=== PATIENT | female | born 1975 | race Caucasian/White ===

== ENCOUNTER 2017-08-30 12:37 | Emergency (ER) | payer OTHER ==
[~2017-08-30] VITALS: Ht 162.6 cm; Wt 65.0 kg
[~2017-08-30 12:37] MED LIST: GLIP5TAB12 PO; METF500T6 PO
[2017-08-30] MEDS ORDERED: SODIUM CHLORIDE 0.9% 1,000 ML IV ONE ×2 (13:34→13:45)
[2017-08-30] MEDS ORDERED: IBUPROFEN 600MG TABLET PO ONE (13:45)
[2017-08-30 15:16] LABS: BASOPHILS % 0.5 % (0.0-2.0); EOSINOPHILS % 1.5 % (0.0-5.0); LYMPHOCYTES % 18.3 % (20.0-50.0); MEAN CORPUSCULAR HEMOGLOBIN 26.9 pg (28.0-32.0); MEAN CORPUSCULAR VOLUME 81.1 fL (81.0-99.0); MEAN PLATELET VOLUME 7.9 fl (7.4-10.4); NEUTROPHILS % 74.7 % (40.0-76.0); PLATELET 231 x1000/uL (130-400); RED BLOOD CELL COUNT 4.45 mill/uL (4.2-5.4); RED CELL DISTRIBUTION WIDTH 14.1 % (11.6-14.6)
[2017-08-30 15:20] LABS: CHLORIDE 103 mEq/L (98-107)
[2017-08-30 15:54] LABS: CLARITY URINE CLOUDY (CLEAR); COLOR URINE YELLOW (YELLOW); KETONES URINE TRACE (NEGATIVE); LEUKOCYTE ESTERASE URINE NEGATIVE (NEGATIVE); NITRITE URINE POSITIVE (NEGATIVE); OCCULT BLOOD URINE NEGATIVE (NEGATIVE); PH URINE 5.5 (4.5-8.0); PROTEIN URINE NEGATIVE (NEGATIVE); SPECIFIC GRAVITY URINE 1.033 (1.005-1.030); UROBILINOGEN URINE 0.2 E.U./dL (0.2-1.0)
[2017-08-30 16:45] VITALS: BP 99/66
== END 2017-08-30 16:47 | disposition home or self-care (01) ==
LOC: ER 12:37
DX: E11.65 Type 2 diabetes mellitus with hyperglycemia (principal); R55 Syncope and collapse; N30.00 Acute cystitis without hematuria; F41.9 Anxiety disorder, unspecified; Z79.84 Long term (current) use of oral hypoglycemic drugs
CPT/HCPCS: 36415; 80053; 81003; 81025; 85025; 93005; 96360; 96361; 99285; J7030; Z7610

== ENCOUNTER 2018-04-12 14:57 | Emergency (ER) | payer SELFPAY ==
[~2018-04-12] VITALS: Ht 165.1 cm; Wt 65.0 kg
[~2018-04-12 14:57] MED LIST changes: +METF-414 PO; -METF500T6 PO
[2018-04-12 17:01] LABS: BASOPHILS % 0.4 % (0.0-2.0); EOSINOPHILS % 1.3 % (0.0-5.0); HEMATOCRIT. 38.6 % (36.0-48.0); HEMOGLOBIN. 12.5 g/dL (12.0-16.0); LYMPHOCYTES % 14.5 % (20.0-50.0); MEAN CORPUSCULAR HEMOGLOBIN 25.8 pg (28.0-32.0); MEAN CORPUSCULAR VOLUME 79.6 fL (81.0-99.0); MEAN PLATELET VOLUME 8.1 fl (7.4-10.4); MONOCYTES % 5.4 % (2.0-8.0); NEUTROPHILS % 78.4 % (40.0-76.0); PLATELET 257 x1000/uL (130-400); RED BLOOD CELL COUNT 4.86 mill/uL (4.2-5.4); RED CELL DISTRIBUTION WIDTH 14.8 % (11.6-14.6)
[2018-04-12 17:02] LABS: CHLORIDE 105 mEq/L (98-107)
[2018-04-12 17:11] LABS: HCG SCREEN NEGATIVE
[2018-04-12] MEDS ORDERED: LORAZEPAM 1MG TABLET PO ONE (18:15)
[2018-04-12 19:30] VITALS: BP 114/74
== END 2018-04-12 21:32 | disposition home or self-care (01) ==
LOC: ER 14:57
DX: R07.89 Other chest pain (principal); F41.9 Anxiety disorder, unspecified; R00.0 Tachycardia, unspecified; K21.9 Gastro-esophageal reflux disease without esophagitis; E11.9 Type 2 diabetes mellitus without complications; Z79.84 Long term (current) use of oral hypoglycemic drugs
CPT/HCPCS: 36415; 71045; 80048; 83880; 84484; 84703; 93005; 99284

== ENCOUNTER 2018-12-13 11:39 | Emergency (ER) | payer MEDICAID ==
[~2018-12-13] VITALS: Ht 157.5 cm; Wt 59.0 kg
[2018-12-13] MEDS ORDERED: SODIUM CHLORIDE 0.9% 1,000 ML IV ONE (12:27)
[2018-12-13 13:09] LABS: BASOPHILS % 0.6 % (0.0-2.0); EOSINOPHILS % 1.8 % (0.0-5.0); HEMATOCRIT. 36.3 % (36.0-48.0); HEMOGLOBIN. 11.8 g/dL (12.0-16.0); LYMPHOCYTES % 18.5 % (20.0-50.0); MEAN CORPUSCULAR HEMOGLOBIN 25.8 pg (28.0-32.0); MEAN CORPUSCULAR VOLUME 79.1 fL (81.0-99.0); MEAN PLATELET VOLUME 8.3 fl (7.4-10.4); MONOCYTES % 5.4 % (2.0-8.0); NEUTROPHILS % 73.7 % (40.0-76.0); PLATELET 200 x1000/uL (130-400); RED BLOOD CELL COUNT 4.59 mill/uL (4.2-5.4)
[2018-12-13 13:16] LABS: CHLORIDE 104 mEq/L (98-107)
[2018-12-13 13:35] LABS: CLARITY URINE CLOUDY (CLEAR); COLOR URINE YELLOW (YELLOW); KETONES URINE NEGATIVE (NEGATIVE); LEUKOCYTE ESTERASE URINE NEGATIVE (NEGATIVE); NITRITE URINE NEGATIVE (NEGATIVE); OCCULT BLOOD URINE NEGATIVE (NEGATIVE); PH URINE 5.5 (4.5-8.0); PROTEIN URINE NEGATIVE (NEGATIVE); SPECIFIC GRAVITY URINE 1.009 (1.005-1.030); UROBILINOGEN URINE 0.2 E.U./dL (0.2-1.0)
[2018-12-13 13:36] LABS: HCG SCREEN NEGATIVE
[2018-12-13 16:00] VITALS: BP 99/59
== END 2018-12-13 16:15 | disposition home or self-care (01) ==
LOC: ER 11:39
DX: E11.65 Type 2 diabetes mellitus with hyperglycemia (principal); F41.9 Anxiety disorder, unspecified; K21.9 Gastro-esophageal reflux disease without esophagitis; Z76.0 Encounter for issue of repeat prescription; Z79.84 Long term (current) use of oral hypoglycemic drugs
CPT/HCPCS: 36415; 71045; 80053; 81003; 81025; 82962; 84703; 85025; 93005; 96360; 99284; J7030; Z7610

== ENCOUNTER 2019-05-14 18:19 | Emergency (ER) | payer SELFPAY ==
[~2019-05-14] VITALS: Ht 165.1 cm; Wt 60.0 kg
[2019-05-14 22:42] LABS: CLARITY URINE CLEAR (CLEAR); COLOR URINE YELLOW (YELLOW); KETONES URINE NEGATIVE (NEGATIVE); LEUKOCYTE ESTERASE URINE TRACE (NEGATIVE); NITRITE URINE NEGATIVE (NEGATIVE); OCCULT BLOOD URINE TRACE (NEGATIVE); PH URINE 5.5 (4.5-8.0); PROTEIN URINE NEGATIVE (NEGATIVE); SPECIFIC GRAVITY URINE 1.016 (1.005-1.030); UROBILINOGEN URINE 0.2 E.U./dL (0.2-1.0)
[2019-05-14 23:31] LABS: BASOPHILS % 0.7 % (0.0-2.0); EOSINOPHILS % 2.4 % (0.0-5.0); HEMATOCRIT. 39.7 % (36.0-48.0); HEMOGLOBIN. 13.1 g/dL (12.0-16.0); LYMPHOCYTES % 27.6 % (20.0-50.0); MEAN CORPUSCULAR HEMOGLOBIN 26.7 pg (28.0-32.0); MEAN CORPUSCULAR VOLUME 80.8 fL (81.0-99.0); MONOCYTES % 6.3 % (2.0-8.0); PLATELET 226 x1000/uL (130-400); RED BLOOD CELL COUNT 4.92 mill/uL (4.2-5.4); RED CELL DISTRIBUTION WIDTH 14.5 % (11.6-14.6)
[2019-05-14 23:38] LABS: CHLORIDE 102 mEq/L (98-107)
[2019-05-15] MEDS ORDERED: SODIUM CHLORIDE 0.9% 1,000 ML IV ONE
[2019-05-15] MEDS ORDERED: ACETAMINOPHEN 325MG TABLET PO ONE (01:00)
[2019-05-15 02:08] VITALS: BP 116/70
== END 2019-05-15 02:09 | disposition home or self-care (01) ==
LOC: ER 18:19
DX: S09.90XA Unspecified injury of head, initial encounter (principal); R55 Syncope and collapse; E11.65 Type 2 diabetes mellitus with hyperglycemia; K21.9 Gastro-esophageal reflux disease without esophagitis; W18.39XA Other fall on same level, initial encounter; Y93.01 Activity, walking, marching and hiking; Y92.89 Other specified places as the place of occurrence of the external cause; Y99.8 Other external cause status
CPT/HCPCS: 36415; 70450; 80053; 81003; 81025; 83690; 85025; 93005; 96360; 99285; J7030

== ENCOUNTER 2021-03-08 15:32 | Emergency (ER) | payer MEDICARE ==
[~2021-03-08] VITALS: Ht 157.5 cm; Wt 65.0 kg
[2021-03-08] MEDS ORDERED: KETOROLAC 60MG/2ML VIAL IM ONE (17:45)
[2021-03-08 18:09] VITALS: BP 124/77
== END 2021-03-08 18:19 | disposition home or self-care (01) ==
LOC: ER 15:32
DX: S46.811A Strain of other muscles, fascia and tendons at shoulder and upper arm level, right arm, initial encounter (principal); M25.511 Pain in right shoulder; X58.XXXA Exposure to other specified factors, initial encounter; Y93.89 Activity, other specified; Y92.89 Other specified places as the place of occurrence of the external cause; Y99.8 Other external cause status; F41.9 Anxiety disorder, unspecified; E11.9 Type 2 diabetes mellitus without complications; K21.9 Gastro-esophageal reflux disease without esophagitis
CPT/HCPCS: 73030; 82962; 96372; 99283; J1885

== ENCOUNTER 2022-03-06 14:11 | Emergency (ER) | payer MEDICAID, MEDICARE ==
[~2022-03-06] VITALS: Ht 157.5 cm; Wt 54.0 kg
[2022-03-06] MEDS ORDERED: ONDANSETRON HCL 4MG/2ML INJ IV STA (15:39)
[2022-03-06] MEDS ORDERED: ACETAMINOPHEN 325MG TABLET PO STA (15:39)
[2022-03-06] MEDS ORDERED: MECLIZINE 25MG TABLET PO ONE (15:45)
[2022-03-06] MEDS ORDERED: SODIUM CHLORIDE 0.9% 1,000 ML IV ONE (15:45)
[2022-03-06 16:00] VITALS: BP 114/70
[2022-03-06 16:24] LABS: CHLORIDE 101 mEq/L (98-107)
[2022-03-06 16:26] LABS: BASOPHILS % 0.5 % (0.0-2.0); EOSINOPHILS % 1.8 % (0.0-5.0); HEMATOCRIT. 40.6 % (36.0-48.0); HEMOGLOBIN. 13.6 g/dL (12.0-16.0); LYMPHOCYTES % 17.6 % (20.0-50.0); MEAN CORPUSCULAR VOLUME 83.6 fL (81.0-99.0); MEAN PLATELET VOLUME 8.3 fl (7.4-10.4); MONOCYTES % 7.5 % (2.0-8.0); NEUTROPHILS % 72.6 % (40.0-76.0); PLATELET 203 x1000/uL (130-400); RED BLOOD CELL COUNT 4.85 mill/uL (4.2-5.4); RED CELL DISTRIBUTION WIDTH 13.3 % (11.6-14.6)
[2022-03-06 16:35] LABS: BETA HYDROXYBUTYRATE 0.8 mMol/L (0.0-0.3)
[2022-03-06] MEDS ORDERED: INSULIN REGULAR (HUMULIN R) 300UNITS/3ML VIAL IV ONE (18:15)
[2022-03-06 18:35] LABS: CLARITY URINE CLEAR (CLEAR); COLOR URINE YELLOW (YELLOW); KETONES URINE 2+ (NEGATIVE); LEUKOCYTE ESTERASE URINE NEGATIVE (NEGATIVE); NITRITE URINE NEGATIVE (NEGATIVE); OCCULT BLOOD URINE NEGATIVE (NEGATIVE); PROTEIN URINE NEGATIVE (NEGATIVE); SPECIFIC GRAVITY URINE 1.045 (1.005-1.030); UROBILINOGEN URINE 0.2 E.U./dL (0.2-1.0)
[2022-03-06] MEDS ORDERED: MECL-159 MT (18:58)
== END 2022-03-06 19:38 | disposition home or self-care (01) ==
LOC: ER 14:11
DX: R42 Dizziness and giddiness (principal); E11.65 Type 2 diabetes mellitus with hyperglycemia; F41.9 Anxiety disorder, unspecified; K21.9 Gastro-esophageal reflux disease without esophagitis; Z87.11 Personal history of peptic ulcer disease
CPT/HCPCS: 36415; 70450; 71045; 80053; 81003; 82010; 82962; 84484; 85025; 86850; 86900; 86901; 93005; 96361; 96374; 96375; 99285; J1815; J2405; J7030; J8597

== ENCOUNTER 2023-08-09 20:05 | Emergency (ER) | payer MEDICARE ==
[~2023-08-09] VITALS: Ht 160 cm; Wt 60.0 kg
[~2023-08-09 20:05] MED LIST changes: -GLIP5TAB12 PO; +GLIP5TAB22 PO; +MECL-299 MT
[2023-08-09 20:11] VITALS: O2SAT 98
[2023-08-09 21:24] VITALS: TEMP 98.5
[2023-08-09] MEDS: SODIUM CHLORIDE 0.9% 1,000 ML IV ONE (21:45)
[2023-08-09 21:47] LABS: BASOPHILS % 0.7 % (0.0-2.0); EOSINOPHILS % 1.8 % (0.0-5.0); HEMATOCRIT. 36.3 % (36.0-48.0); HEMOGLOBIN. 12.1 g/dL (12.0-16.0); LYMPHOCYTES % 22.3 % (20.0-50.0); MEAN CORPUSCULAR HEMOGLOBIN 28.2 pg (28.0-32.0); MEAN CORPUSCULAR HGB CONC 33.3 g/dL (31.0-37.0); MEAN CORPUSCULAR VOLUME 84.5 fL (81.0-99.0); MEAN PLATELET VOLUME 7.8 fl (7.4-10.4); MONOCYTES % 7.1 % (2.0-8.0); NEUTROPHILS % 68.1 % (40.0-76.0); PLATELET 230 x1000/uL (130-400)
[2023-08-09 21:53] LABS: CHLORIDE 107 mEq/L (98-107); POTASSIUM 3.4 mEq/L (3.5-5.1); SODIUM 139 mEq/L (136-145)
[2023-08-09 21:54] LABS: CARBON DIOXIDE 28 mEq/L (21-32)
[2023-08-09 21:56] LABS: PROTHROMBIN TIME 10.7 sec (9.6-11.0)
[2023-08-09 21:59] LABS: CREATININE 0.5 mg/dL (0.6-1.0); GLUCOSE 169 mg/dL (70-105); UREA NITROGEN BLOOD 10 mg/dL (9-23)
[2023-08-09 22:00] LABS: TROPONIN I HIGH SENSITIVITY < 4 ng/L (3.0-34)
[2023-08-09] MEDS ORDERED: MECLIZINE 25MG TABLET PO ONE (22:00)
[2023-08-09] MEDS: METOCLOPRAMIDE HCL 10MG/2ML VIAL IV ONE (22:31)
[2023-08-09] MEDS: DIPHENHYDRAMINE 50MG/ML VIAL IV ONE (22:31)
[2023-08-09] MEDS: KETOROLAC 30MG/ML VIAL IV ONE (22:31)
[2023-08-10 01:08] VITALS: BP 138/76; PULSE 98; RESP 18
== END 2023-08-10 01:12 | disposition home or self-care (01) ==
LOC: ER 20:05
DX: G43.809 Other migraine, not intractable, without status migrainosus (principal); F41.9 Anxiety disorder, unspecified; E11.9 Type 2 diabetes mellitus without complications; K21.9 Gastro-esophageal reflux disease without esophagitis
CPT/HCPCS: 80048; 82962; 83880; 85025; 85610; 84484; 36415; 71045; 70450; 96361; 96374; 96375; 99285; J1200; J1885; J2765; J7030; J8597

== ENCOUNTER 2024-06-23 12:31 | Emergency (ER) | payer MEDICARE ==
[~2024-06-23] VITALS: Ht 157.5 cm; Wt 57.0 kg
[2024-06-23 12:37] VITALS: O2SAT 99
[2024-06-23 14:04] LABS: BASOPHILS % 0.6 % (0.0-2.0); EOSINOPHILS % 1.2 % (0.0-5.0); HEMATOCRIT. 43.2 % (36.0-48.0); LYMPHOCYTES % 15.9 % (20.0-50.0); MEAN CORPUSCULAR HEMOGLOBIN 27.4 pg (28.0-32.0); MEAN CORPUSCULAR HGB CONC 32.4 g/dL (31.0-37.0); MEAN CORPUSCULAR VOLUME 84.6 fL (81.0-99.0); MEAN PLATELET VOLUME 7.8 fl (7.4-10.4); MONOCYTES % 5.5 % (2.0-8.0); NEUTROPHILS % 76.8 % (40.0-76.0); PLATELET 262 x1000/uL (130-400); RED BLOOD CELL COUNT 5.11 mill/uL (4.2-5.4); WHITE BLOOD COUNT 8.6 x1000/uL (4.5-11.0)
[2024-06-23 14:12] LABS: PROTHROMBIN TIME 10.6 sec (9.6-11.0)
[2024-06-23 14:17] LABS: CARBON DIOXIDE 27 mEq/L (21-32); CHLORIDE 98 mEq/L (98-107); POTASSIUM 3.6 mEq/L (3.5-5.1); SODIUM 139 mEq/L (136-145)
[2024-06-23 14:18] LABS: CALCIUM 10.1 mg/dL (8.7-10.4)
[2024-06-23 14:21] LABS: CLARITY URINE TURBID (CLEAR); COLOR URINE YELLOW (YELLOW); GLUCOSE URINE 3+ (NEGATIVE); KETONES URINE 3+ (NEGATIVE); LEUKOCYTE ESTERASE URINE NEGATIVE (NEGATIVE); NITRITE URINE NEGATIVE (NEGATIVE); OCCULT BLOOD URINE NEGATIVE (NEGATIVE); PROTEIN URINE 1+ (NEGATIVE); SPECIFIC GRAVITY URINE 1.038 (1.005-1.030); UROBILINOGEN URINE 0.2 E.U./dL (0.2-1.0)
[2024-06-23 14:22] LABS: CREATININE 0.7 mg/dL (0.6-1.0)
[2024-06-23 14:23] LABS: GLUCOSE 299 mg/dL (70-105); TROPONIN I HIGH SENSITIVITY 4 ng/L (3.0-34); UREA NITROGEN BLOOD 17 mg/dL (9-23)
[2024-06-23 14:33] LABS: BACTERIA URINE 2+; RBC URINE 0-2 /hpf (0-2); SQUAMOUS EPITHELIAL CELL URINE 3+ /lpf (RARE/1+); YEAST URINE FEW
[2024-06-23] MEDS ORDERED: NITR-87 MT (14:41)
[2024-06-23 15:25] VITALS: BP 129/79; PULSE 100; RESP 14; TEMP 36.5; O2SAT 100
== END 2024-06-23 15:39 | disposition home or self-care (01) ==
LOC: ER 12:31
DX: N39.0 Urinary tract infection, site not specified (principal); F41.1 Generalized anxiety disorder; E11.9 Type 2 diabetes mellitus without complications; F43.0 Acute stress reaction; Z87.440 Personal history of urinary (tract) infections
CPT/HCPCS: 36415; 71045; 80048; 81003; 84484; 85025; 93005; 99285

== ENCOUNTER 2024-07-25 15:09 | Emergency (ER) | payer MEDICARE ==
[~2024-07-25] VITALS: Ht 157.5 cm; Wt 61.0 kg
[~2024-07-25 15:09] MED LIST changes: +NITR-87 MT
[2024-07-25 15:10] VITALS: O2SAT 100
[2024-07-25] MEDS: DIPHENHYDRAMINE 50MG/ML VIAL IV ONE (15:49)
[2024-07-25] MEDS: METOCLOPRAMIDE HCL 10MG/2ML VIAL IV ONE (15:50)
[2024-07-25] MEDS: SODIUM CHLORIDE 0.9% 1,000 ML IV ONE (15:50)
[2024-07-25 16:02] LABS: BASOPHILS % 0.3 % (0.0-2.0); EOSINOPHILS % 1.8 % (0.0-5.0); HEMATOCRIT. 39.1 % (36.0-48.0); HEMOGLOBIN. 13.2 g/dL (12.0-16.0); LYMPHOCYTES % 19.9 % (20.0-50.0); MEAN CORPUSCULAR HEMOGLOBIN 27.6 pg (28.0-32.0); MEAN CORPUSCULAR HGB CONC 33.6 g/dL (31.0-37.0); MEAN PLATELET VOLUME 7.9 fl (7.4-10.4); MONOCYTES % 4.4 % (2.0-8.0); NEUTROPHILS % 73.6 % (40.0-76.0); PLATELET 235 x1000/uL (130-400); RED BLOOD CELL COUNT 4.77 mill/uL (4.2-5.4); RED CELL DISTRIBUTION WIDTH 13.6 % (11.6-14.6); WHITE BLOOD COUNT 6.1 x1000/uL (4.5-11.0)
[2024-07-25 16:07] LABS: CHLORIDE 103 mEq/L (98-107); POTASSIUM 3.8 mEq/L (3.5-5.1); SODIUM 140 mEq/L (136-145)
[2024-07-25 16:08] LABS: CALCIUM 9.4 mg/dL (8.7-10.4); CARBON DIOXIDE 29 mEq/L (21-32)
[2024-07-25 16:13] LABS: CREATININE 0.6 mg/dL (0.6-1.0); GLUCOSE 215 mg/dL (70-105); UREA NITROGEN BLOOD 17 mg/dL (9-23)
[2024-07-25 16:14] LABS: ETHANOL BLOOD < 10 mg/dL (<10)
[2024-07-25 16:15] LABS: ALANINE AMINOTRANSFERASE 10 IU/L (10-49); ALBUMIN 4.4 g/dL (3.2-4.8); ASPARTATE AMINOTRANSFERASE 12 IU/L (<34); BILIRUBIN DIRECT < 0.1 mg/dL (<=3.0); BILIRUBIN TOTAL 0.4 mg/dL (0.1-1.0); PROTEIN TOTAL 7.6 g/dL (6.0-8.3)
[2024-07-25 16:17] LABS: TROPONIN I HIGH SENSITIVITY < 4 ng/L (3.0-34)
[2024-07-25] MEDS: ACETAMINOPHEN 1000MG/100ML 100 ML IV ONE (16:17)
[2024-07-25 16:29] LABS: HCG SCREEN NEGATIVE
[2024-07-25 17:39] VITALS: BP 125/77; PULSE 96; RESP 12; TEMP 36.6; O2SAT 100
== END 2024-07-25 15:32 | disposition home or self-care (01) ==
LOC: ER 15:09
DX: G43.909 Migraine, unspecified, not intractable, without status migrainosus (principal); E11.9 Type 2 diabetes mellitus without complications; I10 Essential (primary) hypertension; K21.9 Gastro-esophageal reflux disease without esophagitis; F41.9 Anxiety disorder, unspecified
CPT/HCPCS: 80076; 80048; 80320; 84703; 85025; 84484; 36415; 70450; 96365; 96375; 99285; J2765; J7030; G0480; J0131

== ENCOUNTER 2024-10-17 20:37 | Emergency (ER) | payer MEDICARE ==
[~2024-10-17] VITALS: Ht 157.5 cm; Wt 57.7 kg
[2024-10-17 20:41] VITALS: RESP 14; O2SAT 98
[2024-10-17] MEDS: ONDANSETRON 4MG ODT PO ONE (21:15)
[2024-10-17] MEDS: FAMOTIDINE 20MG TABLET PO ONE (21:15)
[2024-10-17] MEDS: MAGNESIUM/ALUMINUM HYDROXIDE/SIMETHICONE 30ML UDC PO ONE (21:15)
[2024-10-17 21:21] LABS: BASOPHILS % 0.3 % (0.0-2.0); EOSINOPHILS % 2.0 % (0.0-5.0); HEMATOCRIT. 37.9 % (36.0-48.0); HEMOGLOBIN. 12.4 g/dL (12.0-16.0); LYMPHOCYTES % 20.6 % (20.0-50.0); MEAN PLATELET VOLUME 7.6 fl (7.4-10.4); MONOCYTES % 5.1 % (2.0-8.0); NEUTROPHILS % 72.0 % (40.0-76.0); PLATELET 227 x1000/uL (130-400); RED BLOOD CELL COUNT 4.55 mill/uL (4.2-5.4); RED CELL DISTRIBUTION WIDTH 13.6 % (11.6-14.6)
[2024-10-17 21:31] LABS: CLARITY URINE CLOUDY (CLEAR); COLOR URINE YELLOW (YELLOW); GLUCOSE URINE 3+ (NEGATIVE); KETONES URINE 1+ (NEGATIVE); LEUKOCYTE ESTERASE URINE NEGATIVE (NEGATIVE); NITRITE URINE NEGATIVE (NEGATIVE); OCCULT BLOOD URINE NEGATIVE (NEGATIVE); PH URINE 5.5 (4.5-8.0); PROTEIN URINE NEGATIVE (NEGATIVE); SPECIFIC GRAVITY URINE 1.037 (1.005-1.030); UROBILINOGEN URINE 0.2 E.U./dL (0.2-1.0)
[2024-10-17 21:32] LABS: CREATININE 0.8 mg/dL (0.6-1.0); UREA NITROGEN BLOOD 13 mg/dL (9-23)
[2024-10-17 21:34] LABS: ASPARTATE AMINOTRANSFERASE 10 IU/L (<34); BILIRUBIN DIRECT < 0.1 mg/dL (<=3.0); BILIRUBIN TOTAL 0.3 mg/dL (0.1-1.0); PROTEIN TOTAL 7.2 g/dL (6.0-8.3)
[2024-10-17 21:46] LABS: BACTERIA URINE 2+; RBC URINE 0-2 /hpf (0-2); SQUAMOUS EPITHELIAL CELL URINE 2+ /lpf (RARE/1+); WBC URINE 0-2 /hpf (0-2)
[2024-10-17] MEDS: VISCOUS LIDOCAINE 2% 15 ML UDC MM ONE (21:47)
[2024-10-17] MEDS ORDERED: ONDA-239 PO (23:10)
[2024-10-17 23:29] VITALS: BP 147/86; PULSE 103; TEMP 36.5; O2SAT 99
== END 2024-10-17 23:31 | disposition home or self-care (01) ==
LOC: ER 20:37
DX: K29.70 Gastritis, unspecified, without bleeding (principal); E11.9 Type 2 diabetes mellitus without complications; F41.9 Anxiety disorder, unspecified; K21.9 Gastro-esophageal reflux disease without esophagitis
CPT/HCPCS: 99284; 80076; 80048; 81003; 83690; 85025; 36415; 93005; Q0162

== ENCOUNTER 2025-01-22 21:47 | Emergency (ER) | payer MEDICARE ==
[~2025-01-22] VITALS: Ht 162.6 cm; Wt 69.0 kg
[~2025-01-22 21:47] MED LIST changes: +ONDA-239 PO
[2025-01-22 21:50] VITALS: O2SAT 100
[2025-01-22] MEDS ORDERED: ALPRAZOLAM 0.5 MG TABLET PO ONE (22:15)
[2025-01-22] MEDS ORDERED: MAGNESIUM/ALUMINUM HYDROXIDE/SIMETHICONE 30ML UDC PO ONE (22:15)
[2025-01-23] MEDS: ALPRAZOLAM 0.25 MG TABLET PO NR (00:10)
[2025-01-23 00:11] LABS: BASOPHILS % 0.4 % (0.0-2.0); EOSINOPHILS % 1.7 % (0.0-5.0); HEMATOCRIT. 37.5 % (36.0-48.0); HEMOGLOBIN. 12.7 g/dL (12.0-16.0); LYMPHOCYTES % 16.2 % (20.0-50.0); MEAN PLATELET VOLUME 8.0 fl (7.4-10.4); MONOCYTES % 5.5 % (2.0-8.0); NEUTROPHILS % 76.2 % (40.0-76.0); PLATELET 240 x1000/uL (130-400); RED BLOOD CELL COUNT 4.59 mill/uL (4.2-5.4); RED CELL DISTRIBUTION WIDTH 13.2 % (11.6-14.6)
[2025-01-23] MEDS: MAGNESIUM/ALUMINUM HYDROXIDE/SIMETHICONE 30ML UDC PO NR (00:15)
[2025-01-23] MEDS: VISCOUS LIDOCAINE 2% 15 ML UDC MM PRN (00:15)
[2025-01-23 00:16] LABS: CREATININE 0.8 mg/dL (0.6-1.0); UREA NITROGEN BLOOD 11 mg/dL (9-23)
[2025-01-23 00:18] LABS: ASPARTATE AMINOTRANSFERASE 12 IU/L (<34); BILIRUBIN DIRECT < 0.1 mg/dL (<=3.0); BILIRUBIN TOTAL 0.3 mg/dL (0.1-1.0); PROTEIN TOTAL 7.6 g/dL (6.0-8.3)
[2025-01-23] MEDS ORDERED: MAG-55 MT (00:46)
[2025-01-23] MEDS ORDERED: ACET-2708 MT (00:46)
[2025-01-23 01:32] VITALS: BP 121/73; PULSE 98; RESP 16; TEMP 36.9; O2SAT 100
== END 2025-01-23 01:30 | disposition home or self-care (01) ==
LOC: ER 21:47 → CMPBEDREQ 01-23 09:02
DX: K29.70 Gastritis, unspecified, without bleeding (principal); F41.9 Anxiety disorder, unspecified; E11.9 Type 2 diabetes mellitus without complications; I10 Essential (primary) hypertension; Z87.19 Personal history of other diseases of the digestive system
CPT/HCPCS: 36415; 71045; 76705; 80048; 80076; 80320; 85025; 93005; 99285; G0480

== ENCOUNTER 2025-02-09 13:21 | Emergency (ER) | payer MEDICARE ==
[~2025-02-09] VITALS: Ht 157.5 cm; Wt 57.0 kg
[~2025-02-09 13:21] MED LIST changes: +ACET-2708 MT; +MAG-55 MT
[2025-02-09 13:40] VITALS: O2SAT 99
[2025-02-09] MEDS: LORAZEPAM 0.5MG TABLET PO ONE (14:46)
[2025-02-09] MEDS: SODIUM CHLORIDE 0.9% 1,000 ML IV ONE (14:46)
[2025-02-09 15:07] LABS: BASOPHILS % 0.5 % (0.0-2.0); EOSINOPHILS % 1.7 % (0.0-5.0); HEMATOCRIT. 38.6 % (36.0-48.0); HEMOGLOBIN. 12.8 g/dL (12.0-16.0); LYMPHOCYTES % 15.9 % (20.0-50.0); MEAN PLATELET VOLUME 7.6 fl (7.4-10.4); MONOCYTES % 4.7 % (2.0-8.0); NEUTROPHILS % 77.2 % (40.0-76.0); PLATELET 224 x1000/uL (130-400); RED BLOOD CELL COUNT 4.64 mill/uL (4.2-5.4); RED CELL DISTRIBUTION WIDTH 13.3 % (11.6-14.6)
[2025-02-09 15:22] LABS: CREATININE 0.7 mg/dL (0.6-1.0)
[2025-02-09 15:23] LABS: UREA NITROGEN BLOOD 9 mg/dL (9-23)
[2025-02-09 15:24] LABS: TROPONIN I HIGH SENSITIVITY < 4 ng/L (3.0-34)
[2025-02-09 15:37] LABS: HCG SCREEN NEGATIVE
[2025-02-09 16:10] VITALS: BP 118/74; PULSE 88; RESP 12; TEMP 36.7; O2SAT 100
== END 2025-02-09 16:30 | disposition home or self-care (01) ==
LOC: ER 13:47
DX: R06.00 Dyspnea, unspecified (principal); R07.89 Other chest pain; I10 Essential (primary) hypertension; F41.9 Anxiety disorder, unspecified; E11.9 Type 2 diabetes mellitus without complications
CPT/HCPCS: 99285; 96360; 71045; 80048; 81025; 84703; 83880; 85025; 85379; 84484; 36415; 93005; J7030